=== PATIENT | female | born 1935 | race African-American/Black ===

== ENCOUNTER 2016-12-07 09:13 | Outpatient (CLI) | payer MEDICARE ==
--- NOTE | 2016-12-07 11:25 | CT ---
CT ABDOMEN AND PELVIS WITH AND WITHOUT IV CONTRAST: Indication: Complex renal cyst. Comparison: CT abdomen, 01-07-16 and 09-21-15. FINDINGS: The complex cystic mass involving the lateral aspect of the left kidney measures 3.4 x 2.7 cm where it previously measured, in September 2015, 3.5 x 3.2 cm. The internal enhancing nodular component measure s 1.3 x 1.4 cm where on today's examination it measures approximately 1.2 x 1.5 cm. Overall, the les ion is stable. Bilateral renal cysts are stable. Cholelithiasis is similar. Right hepatic lobes stab le. No definite abnormal urothelial lesion seen involving the proximal renal collecting systems. No enlarged lymph nodes are evident. There are scattered degenerative and osteoarthritic change. IMPRESSION: 1. Stable complex cystic mass of the left kidney. 2. Stable bilateral renal cysts and hepatic cysts. 3. Stable cholelithiasis. POS: [facility]
[2016-12-07] MEDS ORDERED: Iopamidol 370 76% 100 ML VIAL ONE (16:26)
== END 2016-12-07 09:14 | disposition home or self-care (01) ==
LOC: CT 09:13
PROVIDERS: ATTEND Urology
DX: N28.1 Cyst of kidney, acquired (principal); K76.89 Other specified diseases of liver; K80.20 Calculus of gallbladder without cholecystitis without obstruction
CPT/HCPCS: 74170

== ENCOUNTER 2017-01-24 04:58 | Inpatient (IN) | payer MEDICARE ==
[2017-01-24] MEDS ORDERED: Ondansetron HCl/PF 4 MG/2 ML Vial ONE ×2 (05:21→10:06)
[2017-01-24 05:49] LABS: Prothrombin Time 13.9 SEC (12.0-14.7)
[2017-01-24 05:50] LABS: Lactic Acid - Sepsis 1.9 mmol/L (0.5-2.2)
[2017-01-24 05:52] LABS: #Lymphocytes 1.3 thou/uL (1.20-3.40); #Monocytes 0.9 thou/uL (0.11-0.59); #Neutrophils 6.9 thou/uL (1.40-6.50); %Basophils 0.2 % (0.0-1.0); %Eosinophils 0.2 % (0.0-10.0); %Lymphocytes 14.3 % (21.0-51.0); %Monocytes 9.7 % (0.0-10.0); Hematocrit 46.1 % (36.0-47.0); Red Blood Cell (RBC) Count 5.31 mill/uL (4.20-5.40); White Blood Cell (WBC) Count 9.1 thou/uL (4.8-10.8)
[2017-01-24 05:58] LABS: ALT (SGPT) 20 U/L (8-55); AST (SGOT) 20 U/L (5-34); Alkaline Phosphatase 57 U/L (40-150); Anion Gap 18 mmol/L (10-20); BUN (Urea Nitrogen) 12 mg/dL (9.8-20.1); Bilirubin, Total 0.4 mg/dL (0.2-1.2); CK (CPK) 98 U/L (29-168); Calc. Creatinine Clearance 0 mL/min (70-130); Calcium 10.8 mg/dL (7.8-10.44); Carbon Dioxide 22 mmol/L (23-31); Chloride 100 mmol/L (98-107); Estimated GFR-MDRD 63; Globulin 3.6 g/dL (2.4-3.5); Lipase 18 U/L (8-78); Protein, Total 7.6 g/dL (6.0-8.3)
[2017-01-24 06:00] LABS: Troponin I 0.015 ng/mL (< 0.028)
[2017-01-24 06:03] LABS: Bilirubin Moderate (Negative); Blood, Urine Negative (Negative); Glucose, Urine (Dipstick) Negative (Negative); Ketone, Urine 15 mg/dL (Negative); Nitrite Positive (Negative); Protein, Urine (Dipstick) 30 mg/dL (Neg-Trace); Urobilinogen 0.2 mg/dL (0.2-1.0)
--- NOTE | 2017-01-24 08:04 | RAD ---
AP CHEST: History: Nausea, vomiting. Date: 01-24-17 Comparison: 05-02-16 FINDINGS: AP chest demonstrates the lungs to be well aerated. No evidence of active intrathoracic disease seen. No evidence of effusions, pneumonia or pneumothorax seen. IMPRESSION: Unremarkable AP chest. POS: [facility]
--- NOTE | 2017-01-24 08:12 | RAD ---
AP ABDOMEN: History: Vomiting, not feeling well. FINDINGS: Lower lumbar degenerative changes seen. Abdominal gas pattern is nonspecific. No evidence of obstruction or ileus seen. No dilated loops of b owel seen. IMPRESSION: Lower lumbar degenerative changes, otherwise unremarkable AP abdomen. POS: [facility]
[2017-01-24] MEDS ORDERED: Acetaminophen 650 MG Suppository PR PRN (08:52)
[2017-01-24] MEDS ORDERED: Acetaminophen 325 MG TAB PO PRN (08:52)
--- NOTE | 2017-01-24 09:17 | CT ---
ABDOMEN AND PELVIC CT SCAN WITH IV CONTRAST: History: 81-year-old female with abdominal pain with nausea, vomiting, and diarrhea. Comparison: 01-15-17, 04-01-12 FINDINGS: The lung bases are clear. The gallbladder is upper range of normal size with at least one gallstone w ithout overt gallbladder wall thickening or some pericholecystic fluid or fat stranding. The region o f the pancreas appears within normal limits. The spleen is unremarkable. Adrenal glands are unremarka ble. There is a stable right renal cyst. There is also stable appearing complex solid and cystic mass involving the right kidney with a cystic component that measures approximately 2.7 x 2.9 cm in size with a central enhancing mural nodule of approximately 1.3 cm in size, stable from the 01-15-17 exam. This complex cyst with mural nodule is little changed from 04-01-12 study, but a cystic neoplastic ma ss is considered very likely. There are some abnormally dilated loops of small bowel in the upper mid and lower abdomen with one somewhat more focal area of dilatation of what appears to be small bowel in the upper pelvis which appears to be post-operative, possibly some type of anastomosis which appea rs to be focally dilated. There is some residual oral contrast media in the small bowel and colon. No evidence for overt abscess. There is a Love catheter in place within decompressed bladder. 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 IMPRESSION: Abnormally dilated small bowel loops with air and fluid levels throughout including a somewhat more f ocally dilated loop of what appears to be small bowel in the upper pelvis which appears to be some ty pe of post-operative anastomotic site. The amount of small bowel dilatation has progressed and worsen ed from 01-15-17 study. Cholelithiasis without evidence for acute cholecystitis. Bilateral renal cyst s with a complex solid and cystic mass involving the left kidney which is little changed from prior s tudies. No evidence of abscess. POS: [facility]
[2017-01-24] MEDS ORDERED: Lidocaine Viscous Sol 2% 15 ml UD Cup ONE (09:33)
[2017-01-24] MEDS ORDERED: Benzocaine 20% Spray 60 ML CAN ONE (09:33)
[2017-01-24] MEDS ORDERED: Oxymetazoline HCl 0.05% ( 15 ML ) ONE (10:06)
[2017-01-24] MEDS ORDERED: Morphine 4 MG/ML VIAL ONE (10:06)
[2017-01-24] MEDS ORDERED: Dextrose 50% Abboject 50 ML SYRINGE SLOW IVP PRN (10:29)
[2017-01-24] MEDS ORDERED: Dextrose 5% in Water 1,000 ML IV PRN (10:29)
--- NOTE | 2017-01-24 10:56 | HP ---
PRIMARY CARE PROVIDER: ELLIE Cruz CHIEF COMPLAINT: Abdominal pain. HISTORY OF PRESENT ILLNESS: Ms. Coombs is a pleasant 81-year-old lady who was seen at [facility] on 01/25/2016. On 01/14/2017, she developed abdominal pain, nausea, vomiting, an d diarrhea. She reports vomiting multiple times a day. She describes that the pain was over the rig ht side of her abdomen, sharp, 10/10 at its worst, accompanied by nausea, vomiting, and diarrhea. No known aggravating or relieving factors. She went to the emergency room at [place] on 01/15/2017. She was diagnosed with acute infectious gastroenteritis versus partial small-bowel obstruction. She reports that she lives with her sons who were also sick with similar symptoms. She was discharged ho in from the emergency room. She continued to have diminished oral intake, diarrhea, and vomiting. S he also reports that her urine output has diminished. She therefore came to the emergency room. REVIEW OF SYSTEMS: The following complete review of systems was negative, unless otherwise mentioned in the HPI or below: Constitutional: Weight loss or gain, sense of well-being, ability to conduct usual activities, exerc ise tolerance. Skin/Breast: Rash, itching, changes in hair growth or loss, nail changes, breast lumps, tenderness, swelling, nipple discharge. Eyes: Vision, double vision, tearing, blind spots, pain. ENT/Mouth: Headaches (location, time of onset, duration, precipitating factors), vertigo, lightheade dness, injury. Vision, double vision, tearing, blind spots, pain, nose bleeding, colds, obstruction, discharge, dental difficulties, gingival bleeding, dentures, neck stiffness, pain, tenderness, masses in thyroid or other areas Cardiovascular: Precordial pain, substernal distress, palpitations, syncope, dyspnea on exertion, or thopnea, nocturnal paroxysmal dyspnea, edema, cyanosis, hypertension, heart murmurs, varicosities, ph lebitis, claudication. Respiratory: Pain, shortness of breath, wheezing, stridor, cough, hemoptysis, fever or night sweats Gastrointestinal: Poor appetite, dysphagia, indigestion, abdominal pain, heartburn, eructation, naus ea, vomiting, hematemesis, jaundice, constipation, or diarrhea, abnormal stools (steffany-colored, tarry, bloody, greasy, foul smelling), flatulence, hemorrhoids, recent changes in bowel habits. Genitourinary: Urgency, frequency, dysuria, nocturia, hematuria, polyuria, oliguria, unusual (or gene nge in) color of urine, stones, hesitancy, change in size of stream, dribbling, acute retention or in continence, libido, potency. Musculoskeletal: Pain, swelling, redness or heat of muscles or joints, limitation, of motion, muscul ar weakness, atrophy, cramps. Neurologic/Psychiatric: Convulsions, paralyses, tremor, incoordination, paraesthesias, difficulties with memory of speech, sensory or motor disturbances, or muscular coordination (ataxia, tremor), emot ional problems, anxiety, depression, previous psychiatric care, unusual perceptions, hallucinations. Allergy/Immunologic: Skin rash, anemia, bleeding tendency, polydipsia, polyuria, intolerance to heat or cold. PAST MEDICAL HISTORY: Significant for diabetes mellitus type 2, glaucoma, gastroesophageal reflux di sease, hypertension, colon cancer, obesity, right renal cyst, left cataract surgery, left corneal tra nsplant, and right eye blindness. PAST SURGICAL HISTORY: Significant for partial colectomy in 1995 for colon cancer, cataract surgery, and corneal surgery. PSYCHIATRIC HISTORY: Significant for anxiety. SOCIAL HISTORY: The patient denies tobacco use, alcohol use or recreational drug use. She lives wit h her 2 sons. FAMILY HISTORY: No family history of premature coronary artery disease. CODE STATUS: I discussed her code status. She is FULL CODE. ALLERGIES: No known drug allergies. CURRENT MEDICATIONS: Include metoprolol 50 mg 2 times a day, Farxiga 5 mg 2 times a day, alprazolam 0.5 mg as needed. PHYSICAL EXAMINATION: GENERAL: On examination, Ms. Coombs is awake and alert, not in acute distress. VITAL SIGNS: Blood pressure is 132/86, pulse is 93. She is breathing at rate of 16 and saturating 9 6% on room air. She is afebrile. EYES: She is blind in the right eye. She also has partial opacification of the left cornea. No scl eral icterus, no conjunctival pallor. ENT: Dry mucosal membranes, no oropharyngeal erythema or exudates. NECK: Supple, nontender, normal range of movement, trachea is midline. RESPIRATORY: Accessory muscles of breathing are not active. Chest wall movements are symmetrical bi laterally. LUNGS: Clear to auscultation without wheeze, rhonchi or crepitations. CARDIOVASCULAR: S1 and S2 are heard, regular. LUNGS: Peripheral pulses palpable. No carotid bruit, no pericardial rub. ABDOMEN: Mild tenderness over the right lower quadrant, no guarding or rigidity, bowel sounds are he aniket, no hepatomegaly, no splenomegaly. NEUROLOGIC: Cranial nerves II-XII are intact. Deep tendon reflexes are 2+. MUSCULOSKELETAL: Power is 5/5 in all 4 extremities. Normal range of movement at all major extremity joints. LYMPHATIC: No cervical lymphadenopathy. PSYCHIATRIC: Normal mood, normal affect, patient is oriented to person, place, and time. IMAGING AND LABORATORY DATA: Ms. Coombs's labs and investigations were reviewed. I have reviewed he r electrocardiogram, which shows normal sinus rhythm, no ST changes to suggest an acute coronary synd natalia. I also reviewed her chest x-ray, which does not show any pulmonary infiltrates. Abdominal x-r ays showed lower lumbar degenerative changes. CT scan of the abdomen and pelvis showed abnormally di lated small bowel loops with air fluid levels throughout. Laboratory investigation show unremarkable CBC, INR 1.1, mildly elevated calcium of 10.8, otherwise unremarkable. Comprehensive metabolic prof ile, normal troponin I, normal BNP, normal lactic acid and urinalysis positive for protein, ketones, nitrites, and bilirubin. ASSESSMENT AND PLAN: Ms. Coombs is a pleasant 81-year-old lady who was seen at [facility]. Her problem list includes: 1. Abdominal pain: Most likely secondary to bowel obstruction, although could be secondary to urina ry tract infection as well. She will be admitted to the hospital for further management. 2. Urinary tract infection. She will be started on empiric IV ceftriaxone while awaiting urine cult ures. 3. Bowel obstruction: Surgical service has been consulted by emergency room physician for managemen t. Has also placed a nasogastric tube. 4. Diabetes mellitus: Start Accu-Cheks and insulin sliding scale. 5. Hypercalcemia: Mild, etiology unclear, we will recheck. 6. Hypertension: Monitor vital signs, titrate antihypertensives as needed. 7. Glaucoma: The patient was reportedly started on eyedrops recently. Resume the medication once c larified. Many thanks for allowing me to participate in your patient's care. Please feel free to contact me wi th any questions or concerns. LEVEL OF RISK: High. LEVEL OF COMPLEXITY: High.
[2017-01-24 12:54] VITALS: BMI 40.9
[2017-01-24] MEDS ORDERED: Iopamidol 370 76% 50 ML VIAL FS ONE (13:54)
[2017-01-24] MEDS ORDERED: ISOVUE-370 76%-LOCM 1 ML ONE (13:54)
[2017-01-24] MEDS: Sodium Chloride 0.9% 1,000 ML IV SCH (14:04)
[2017-01-24] MEDS: Enoxaparin Sodium 40 MG/0.4 ML SYRINGE SC SCH (15:32)
[2017-01-24] MEDS: Ondansetron HCl/PF 4 MG/2 ML Vial IVP PRN (17:47)
[2017-01-24] MEDS ORDERED: Cepastat Lozenges 1 LOZ PO PRN (18:30)
--- NOTE | 2017-01-24 19:32 | CON ---
DATE OF CONSULTATION: 01/24/2017 This is a consult note from Dr. Garrett, [facility]. REASON FOR CONSULTATION: Small-bowel obstruction. HISTORY OF PRESENT ILLNESS: This is an 81-year-old female who presents with nausea and vomiting, rec ently seen in the Emergency Department in [place] last week with similar symptoms that improved. Ean parker was thought at that time to have a gastroenteritis. Seen in the Emergency Department here now, whe re a repeat CT scan shows evidence of small-bowel obstruction, there is dilation of the small intesti ne. No definite transition point, although she has an anastomosis down in the pelvis with some proxi mal dilation. Patient has a history of colon resection and anastomosis for colon cancer that was 20 years ago. No history of recurrent cancer, never had a small-bowel obstruction before. She has also been found to have a urinary tract infection. PAST MEDICAL HISTORY: Includes diabetes mellitus type 2, morbid obesity, glaucoma, gastroesophageal reflux disease and hypertension. PAST SURGICAL HISTORY: Partial colectomy in 1995 and cataract surgery. SOCIAL HISTORY: No smoking, alcohol or other drugs. Lives at home with her 2 sons. MEDICINES: Include metoprolol, Farxiga and alprazolam. ALLERGIES: No known drug allergies. REVIEW OF SYSTEMS: Ten-system review of systems otherwise negative unless described above. PHYSICAL EXAMINATION: VITAL SIGNS: Blood pressure is 120/67, pulse 88, respirations 20. She is afebrile. NG tube placed by me at the bedside with 400 out immediately of bilious material. HEENT: Sclerae are anicteric. Oropharynx is clear. NECK: No lymphadenopathy. CHEST: Coarse breath sounds bilateral. HEART: Regular rate. ABDOMEN: Distended and diffuse mildly tender without guarding or rebound. No obvious incisional her christal. LABORATORY AND X-RAY FINDINGS: White blood cell count is 9 and hemoglobin 14. No bands on her diffe rential. Sodium 136, potassium 3.5, creatinine 1 and glucose 203. UA shows positive for nitrites, h igh on ketones and protein. Leukocyte esterase negative. CT scan of her abdomen and pelvis shows ab normally dilated small intestinal loops down to what appears to be a postop anastomotic site. ASSESSMENT: Small-bowel obstruction, likely secondary to previous abdominal surgery. PLAN: I placed an NG tube. She is not tachycardic, has a normal infectious count. We will try NG t ube decompression overnight. I suspect she will improve without surgery; however, if not improved cl inically in 24-48 hours, next step would be either a laparotomy and lysis of adhesions or Gastrografi n small bowel follow-through. We will follow with you.
[2017-01-25] MEDS: Sodium Chloride 0.9% 1,000 ML IV SCH (01:08)
[2017-01-25 04:01] LABS: #Lymphocytes 1.6 thou/uL (1.20-3.40); #Monocytes 0.8 thou/uL (0.11-0.59); #Neutrophils 3.2 thou/uL (1.40-6.50); %Basophils 0.3 % (0.0-1.0); %Eosinophils 0.7 % (0.0-10.0); %Lymphocytes 28.5 % (21.0-51.0); %Monocytes 14.1 % (0.0-10.0); Hematocrit 41.4 % (36.0-47.0); Mean Platelet Volume 7.1 fL (7.4-10.4); Red Blood Cell (RBC) Count 4.74 mill/uL (4.20-5.40); White Blood Cell (WBC) Count 5.7 thou/uL (4.8-10.8)
[2017-01-25 04:18] LABS: Anion Gap 17 mmol/L (10-20); BUN (Urea Nitrogen) 10 mg/dL (9.8-20.1); Calc. Creatinine Clearance 99 mL/min (70-130); Calcium 9.3 mg/dL (7.8-10.44); Carbon Dioxide 22 mmol/L (23-31); Chloride 105 mmol/L (98-107); Estimated GFR-MDRD 85
[2017-01-25] MEDS: cefTRIAXone\\ROCEPHIN 1 GM, Syringe 0.4 ML in Sterile Water 9.6 ML SLOW IVP SCH (05:54)
[2017-01-25] MEDS ORDERED: cefTRIAXone\\ROCEPHIN 1 GM in Sodium Chloride 0.9% 100 ML IVPB SCH (06:00)
[2017-01-25] MEDS ORDERED: Potassium Chloride 40 MEQ in Premix Bag 1 BAG IVPB SCH (08:30)
[2017-01-25] MEDS ORDERED: NS 0.9% w/ 20 MEQ KCL 1,000 ML/1,000 ML BAG IV SCH (08:30)
[2017-01-25] MEDS ORDERED: Potassium Chloride 40 MEQ in Sodium Chloride 0.9% 250 ML 250 ML IVPB SCH ×4 (09:00)
[2017-01-25] MEDS: Enoxaparin Sodium 40 MG/0.4 ML SYRINGE SC SCH (09:40)
--- NOTE | 2017-01-25 11:49 | PRG ---
DATE OF SERVICE: 01/25/2017 SUBJECTIVE: Ms. Coombs had a bowel movement. She is feeling better. Denies nausea. She is hungry. NG output is 200 overnight, it is turning more clear. PHYSICAL EXAMINATION: GENERAL: She is afebrile. Vital signs are stable. ABDOMEN: Soft, minimally distended, minimally diffusely tender. Well-healed incision. LABORATORY DATA: White blood cell count is normal. ASSESSMENT: Resolving likely partial small-bowel obstruction. PLAN: I recommend Gastrografin small bowel follow through only because this is her second bout of th is in the last month, whereas before she was seen at the [facility]. So a small bowel follow through today did confirm that there is no obstruction. When that is normal, later on, I will remove her NG tube and start her on a full liquid diet. Likely could be discharged home tomorrow, then Dr. Babb will be covering for me tomorrow in my absence.
--- NOTE | 2017-01-25 13:23 | PDOC.PN ---
- Subjective Encounter Start Date: 01/25/17 Encounter Start Time: 07:00 Pt seen for followup re: hypokalemia. Denies chest pain, shortness of breath, fevers or chills. Had bowel movement last night. - Objective MAR Reviewed: Yes Vital Signs & Weight: Vital Signs (12 hours) Temp Pulse Resp BP Pulse Ox 01/25/17 08:00 98.2 F 89 20 99 01/25/17 07:27 98.2 F 89 20 125/67 99 01/25/17 04:00 98.3 F 80 16 131/63 99 Weight Weight 253 lb 14.4 oz I&O: 01/24/17 01/25/17 01/26/17 06:59 06:59 06:59 Intake Total 1550 Output Total 1400 Balance 150 Result Diagrams: 01/25/17 03:50 01/25/17 03:50 Additional Labs: Accuchecks 01/25/17 01/25/17 01/25/17 12:36 05:25 00:04 POC Glucose 110 120 H 148 H 01/24/17 18:00 POC Glucose 128 H Phys Exam - Physical Examination morbid obesity HEENT: moist MMs, sclera anicteric, oral pharynx no lesions R eye blind, L corneal opacity Neck: no nodes, no JVD, supple, full ROM Respiratory: no wheezing, no rales, no rhonchi, clear to auscultation bilateral Cardiovascular: RRR, no rub Gastrointestinal: soft, non-tender, no distention, positive bowel sounds Musculoskeletal: pulses present Neurological: moves all 4 limbs Lymphatic: no nodes Psychiatric: normal affect, A&O x 3 Skin: no rash, normal turgor, cap refill <2 seconds Dx/Plan (1) Hypokalemia Code(s): E87.6 - HYPOKALEMIA Status: Acute (2) Bowel obstruction Code(s): K56.609 - UNSP INTESTNL OBST, UNSP TO PARTIAL VERSUS COMPLETE OBST Status: Acute (3) UTI (urinary tract infection) Status: Acute (4) DM2 (diabetes mellitus, type 2) Status: Chronic (5) HTN (hypertension) Code(s): I10 - ESSENTIAL (PRIMARY) HYPERTENSION Status: Chronic (6) Glaucoma Code(s): H40.9 - UNSPECIFIED GLAUCOMA Status: Chronic (7) Morbid obesity Code(s): E66.01 - MORBID (SEVERE) OBESITY DUE TO EXCESS CALORIES Status: Chronic (8) Hypercalcemia Code(s): E83.52 - HYPERCALCEMIA Status: Resolved - Plan PT/OT, out of bed/ambulate, DVT proph w/lovenox * .Replace potassium. Surgical service following re: bowel obstruction, will await instructions. Continue IV antibiotics, follow urine cultures. Monitor vital signs, titrate antihypertensives as needed. Conitnue accuchecks, insulin sliding scale. Review of Systems - Review of Systems Constitutional: negative: Fever, Chills, Sweats, Weakness, Malaise Respiratory: negative: Cough, Dry, Shortness of Breath, Hemoptysis, SOB with Excertion, Pleuritic Pain, Sputum, Wheezing Cardiovascular: negative: Chest Pain, Palpitations, Orthopnea, Paroxysmal Noc. Dyspnea, Edema, Light Headedness Gastrointestinal: negative: Nausea, Vomiting, Abdominal Pain, Diarrhea, Constipation, Melena, Hematochezia Genitourinary: negative: Dysuria, Frequency, Incontinence, Hematuria, Retention - Medications/Allergies Allergies/Adverse Reactions: Allergies Allergy/AdvReac Type Severity Reaction Status Date / Time No Known Drug Allergies Allergy Verified 01/24/17 08:50 Medications: Current Medications Acetaminophen (Tylenol) 650 mg PO Q4H PRN PRN Reason: Headache/Fever or Pain Acetaminophen (Tylenol) 650 mg OK Q4H PRN PRN Reason: Headache/Fever or Pain Dextrose/Water (Dextrose 50%) 25 gm SLOW IVP PRN PRN PRN Reason: Hypoglycemia Enoxaparin Sodium (Lovenox) 40 mg SC 0900 [facility] Last Admin: 01/25/17 09:40 Dose: 40 mg Glucagon (Glucagon) 1 mg IM PRN PRN PRN Reason: Hypoglycemia Dextrose/Water (D5w) 1,000 mls @ 0 mls/hr IV .Q0M PRN; As Directed PRN Reason: Hypoglycemia Ceftriaxone Sodium 1 gm/ (Syringe 0.4 ml/ Sterile Water) 10 mls @ 120 mls/hr SLOW IVP 0600 [facility] Last Admin: 01/25/17 05:54 Dose: 10 mls Potassium Chloride/Sodium Chloride (Ns 0.9% W/ 20 Meq Kcl) 1,000 ml in 1,000 mls @ 100 mls/hr IV .Q10H [facility] Last Admin: 01/25/17 09:41 Dose: 1,000 mls Insulin Human Lispro (Humalog) 0 units SC .MILD SLIDING SCALE PRN PRN Reason: Mild Correctional Scale Morphine Sulfate (Morphine) 2 mg SLOW IVP Q6H PRN PRN Reason: Pain Ondansetron HCl (Zofran) 4 mg IVP Q6H PRN PRN Reason: Nausea/Vomiting Last Admin: 01/24/17 17:47 Dose: 4 mg Throat Lozenges (Cepastat Lozenges) 1 ashleigh PO PRN PRN PRN Reason: .BEDSIDE
[2017-01-25] MEDS: Latanoprost 0.005% Ophth Soln 2.5 ml Bottle EA EYE SCH ×2 (15:33→21:10)
[2017-01-25] MEDS: Ondansetron ODT 4 MG TAB SL SCH ×2 (15:34→22:56)
[2017-01-25] MEDS ORDERED: Lorazepam 2 MG/ML VIAL SLOW IVP SCH (17:15)
[2017-01-25] MEDS: Potassium Chloride 20 MEQ in Lactated Ringer's 1,000 ML IV SCH (19:18)
--- NOTE | 2017-01-25 20:18 | RAD ---
SMALL BOWEL EXAM: 01/25/17 Patient was given Gastrografin via an NG tube. Sequential images were obtained of the abdomen. HISTORY: Small bowel obstruction. FINDINGS: [employer] film shows mild gaseous dilatation of small and large bowel. On initial imaging, the contrast opacifies the stomach and duodenum. The duodenum and proximal jejunu m appear unremarkable. On delayed films, the mid and distal small bowel showed dilatation. There is delayed small bowel multani sit. Contrast does not reach the colon at 3.5 hours. A delayed 8 hour exam was performed and contrast is seen throughout the colon and to the level of the rectum. IMPRESSION: Mild dilatation of mid and distal small bowel. Delayed small bowel transit indicating a low grade or partial small bowel obstruction. POS: [facility]
[2017-01-25] MEDS ORDERED: Sodium Chloride 0.9% 500 ML IVPB SCH (20:30)
[2017-01-25] MEDS: Metoprolol Tartrate 50 MG TAB PO SCH (21:51)
[2017-01-25] MEDS: prednisoLONE 1% Ophth Susp 5 ml Bottle L EYE SCH (21:52)
[2017-01-25] MEDS: Ondansetron HCl/PF 4 MG/2 ML Vial IVP PRN (22:23)
[2017-01-26] MEDS: Morphine 4 MG/ML VIAL SLOW IVP PRN ×2 (02:27→08:37)
[2017-01-26 03:53] LABS: Anion Gap 17 mmol/L (10-20); BUN (Urea Nitrogen) 8 mg/dL (9.8-20.1); Calc. Creatinine Clearance 97 mL/min (70-130); Calcium 9.3 mg/dL (7.8-10.44); Carbon Dioxide 20 mmol/L (23-31); Chloride 115 mmol/L (98-107); Estimated GFR-MDRD 83
[2017-01-26] MEDS: Potassium Chloride 20 MEQ in Lactated Ringer's 1,000 ML IV SCH ×2 (05:13→18:00)
[2017-01-26] MEDS: cefTRIAXone\\ROCEPHIN 1 GM, Syringe 0.4 ML in Sterile Water 9.6 ML SLOW IVP SCH (05:13)
[2017-01-26] MEDS: Ondansetron ODT 4 MG TAB SL SCH ×3 (05:24→22:59)
--- NOTE | 2017-01-26 08:02 | PRG ---
DATE OF SERVICE: 01/26/2017 SUBJECTIVE: Concepción Coombs is seen today for Dr. Montes, Thanksgiving holiday coverage. The pat linda had a small bowel follow-through yesterday, within three and a half hours contrast did make into the colon and in about eight-hour film most of the contrast was in the colon and rectum. Patient del rio d numerous bowel movements yesterday. The NG tube was removed, and her morning abdominal x-rays are pending. Patient states she has had some nausea since the nasogastric tube was removed yesterday. S he states her abdomen is still slightly distended. She has had a partial colectomy by Dr. Montes [place] years [place]. OBJECTIVE: LUNGS: Clear to auscultation. CARDIAC: Regular rate and rhythm without murmur or gallop. ABDOMEN: Soft, mildly distended, mildly firm midline scar per past surgical history. LABORATORY DATA: No laboratories today. ASSESSMENT AND PLAN: 1. Partial bowel obstruction. X-rays yesterday revealed some proximal mid small bowel dilatation pe rsistent, but contrast did make into the colon. She is considered to have a partial bowel obstructio n. We would order full liquids today and see how she tolerates this. Hopefully, operative intervent ion will not be necessary. 2. Mobility poor. The patient is not independently ambulatory. She can mobilize with a walker with assistance. She would need to be up in a chair 3-4 times a day, at least up in a chair for all meal s out of bed and also in the evening.
--- NOTE | 2017-01-26 08:21 | RAD ---
SUPINE AND LEFT LATERAL DECUBITUS VIEWS OF ABDOMEN: Date: 01/26/17 HISTORY: Follow-up small bowel obstruction. COMPARISON: Small bowel study on 01/25/17. FINDINGS: Again noted are persistent dilated loops of small bowel with contrast seen throughout loops of small bowel. There is contrast seen in the colon. However, there is suggestion of differential air fluid le vels on the left lateral decubitus view, which suggests a partial small bowel obstruction. No free in traperitoneal gas is identified on this exam. IMPRESSION: Contrast is seen within the colon, but there are persistently dilated loops of small bowel, and findi ngs are again worrisome for partial small bowel obstruction. POS: [facility]
[2017-01-26] MEDS: ALPRAZolam 0.5 MG TAB PO PRN (08:25)
[2017-01-26] MEDS: Metoprolol Tartrate 50 MG TAB PO SCH ×2 (08:25→21:00)
[2017-01-26] MEDS: Enoxaparin Sodium 40 MG/0.4 ML SYRINGE SC SCH (08:26)
[2017-01-26] MEDS: Latanoprost 0.005% Ophth Soln 2.5 ml Bottle EA EYE SCH ×3 (08:28→21:25)
[2017-01-26] MEDS: prednisoLONE 1% Ophth Susp 5 ml Bottle L EYE SCH ×2 (08:30→21:00)
--- NOTE | 2017-01-26 08:51 | PDOC.PN ---
- Subjective Encounter Start Date: 01/26/17 Encounter Start Time: 08:50 Subjective: still with abdominal pain .vomited earlier this am -: no BM today.No gas.feels nauseous. -: could not tolerate CLD - Objective MAR Reviewed: Yes Vital Signs & Weight: Vital Signs (12 hours) Temp Pulse Resp BP BP Pulse Ox 01/26/17 07:00 97.9 F 88 20 128/66 97 01/26/17 03:33 98.8 F 94 20 127/72 97 01/25/17 23:27 99.4 F 112 H 16 129/77 95 Weight Admit Weight 253 lb 14.4 oz Weight 253 lb 14.4 oz I&O: 01/25/17 01/26/17 01/27/17 06:59 06:59 06:59 Intake Total 1550 960 581 Output Total 1400 750 Balance 150 210 581 Result Diagrams: 01/25/17 03:50 01/26/17 03:33 Additional Labs: Accuchecks 01/26/17 01/25/17 01/25/17 05:31 23:34 17:51 POC Glucose 154 H 155 H 141 H 01/25/17 12:36 POC Glucose 110 Microbiology 01/24/17 05:49 Urine gilliland catheter Urine Culture - Preliminary NO GROWTH AT 24 HOURS Laboratory Tests 01/24/17 01/24/17 01/25/17 05:29 05:29 03:50 Sodium 136 141 CK-MB (CK-2) 2.2 Troponin I 0.015 Lipase 18 01/26/17 03:33 Sodium 148 H CK-MB (CK-2) Troponin I Lipase Radiology Reviewed by me: Yes (KUB 01/26-persistent Partial SBO) Phys Exam - Physical Examination Constitutional: NAD tired looking HEENT: PERRLA, moist MMs, sclera anicteric, oral pharynx no lesions, 2+ tonsils Neck: no nodes, no JVD, supple, full ROM Respiratory: no wheezing, no rales, no rhonchi, clear to auscultation bilateral Cardiovascular: RRR, no significant murmur Gastrointestinal: soft, non-tender, no distention, positive bowel sounds Musculoskeletal: no edema, pulses present Neurological: non-focal, normal sensation, moves all 4 limbs Psychiatric: normal affect, A&O x 3 Dx/Plan (1) Bowel obstruction Code(s): K56.609 - UNSP INTESTNL OBST, UNSP TO PARTIAL VERSUS COMPLETE OBST Status: Acute (2) UTI (urinary tract infection) Status: Acute (3) Hypernatremia Code(s): E87.0 - HYPEROSMOLALITY AND HYPERNATREMIA Status: Acute (4) DM2 (diabetes mellitus, type 2) Status: Chronic (5) Glaucoma Code(s): H40.9 - UNSPECIFIED GLAUCOMA Status: Chronic (6) HTN (hypertension) Code(s): I10 - ESSENTIAL (PRIMARY) HYPERTENSION Status: Chronic (7) Morbid obesity Code(s): E66.01 - MORBID (SEVERE) OBESITY DUE TO EXCESS CALORIES Status: Chronic (8) H/O malignant neoplasm of colon Code(s): Z85.038 - PERSONAL HISTORY OF MALIGNANT NEOPLASM OF LARGE INTESTINE Status: Acute - Plan continue antibiotics, DVT proph w/SCDs NGT taken out last night.Pt still has Partial SBO on KUB. -: May need placement of NGT again.discussed w GS.change to npo. -: May need surgical correction if no improvement. -: monitor.hemodynamically stable.cont rocephin.urine Cx NGTD -: sodium high.monitor. ON LR. * . Review of Systems - Medications/Allergies Allergies/Adverse Reactions: Allergies Allergy/AdvReac Type Severity Reaction Status Date / Time No Known Drug Allergies Allergy Verified 01/24/17 08:50 Medications: Current Medications Acetaminophen (Tylenol) 650 mg PO Q4H PRN PRN Reason: Headache/Fever or Pain Acetaminophen (Tylenol) 650 mg ND Q4H PRN PRN Reason: Headache/Fever or Pain Alprazolam (Xanax) 0.5 mg PO DAILY PRN PRN Reason: Anxiety Last Admin: 01/26/17 08:25 Dose: 0.5 mg Dextrose/Water (Dextrose 50%) 25 gm SLOW IVP PRN PRN PRN Reason: Hypoglycemia Enoxaparin Sodium (Lovenox) 40 mg SC 0900 [facility] Last Admin: 01/26/17 08:26 Dose: 40 mg Glucagon (Glucagon) 1 mg IM PRN PRN PRN Reason: Hypoglycemia Dextrose/Water (D5w) 1,000 mls @ 0 mls/hr IV .Q0M PRN; As Directed PRN Reason: Hypoglycemia Ceftriaxone Sodium 1 gm/ (Syringe 0.4 ml/ Sterile Water) 10 mls @ 120 mls/hr SLOW IVP 0600 [facility] Last Admin: 01/26/17 05:13 Dose: 10 mls Potassium Chloride 20 meq/ (Lactated Ringer's) 1,010 mls @ 100 mls/hr IV .Q10H6M [facility] Last Admin: 01/26/17 05:13 Dose: 1,010 mls Insulin Human Lispro (Humalog) 0 units SC .MILD SLIDING SCALE PRN PRN Reason: Mild Correctional Scale Latanoprost (Xalatan 0.005% Ophth Soln) 1 drop EA EYE TID [facility] Last Admin: 01/26/17 08:28 Dose: 1 drop Metoprolol Tartrate (Lopressor) 50 mg PO BID [facility] Last Admin: 01/26/17 08:25 Dose: 50 mg Morphine Sulfate (Morphine) 2 mg SLOW IVP Q6H PRN PRN Reason: Pain Last Admin: 01/26/17 08:37 Dose: 2 mg Ondansetron HCl (Zofran) 4 mg IVP Q6H PRN PRN Reason: Nausea/Vomiting Last Admin: 01/25/17 22:23 Dose: 4 mg Ondansetron HCl (Zofran Odt) 4 mg SL Q8HR [facility] Last Admin: 01/26/17 05:24 Dose: 4 mg Prednisolone Acetate (Econopred Plus 1% Opth Susp) 1 drop L EYE BID [facility] Last Admin: 01/26/17 08:30 Dose: 1 drop Throat Lozenges (Cepastat Lozenges) 1 ashleigh PO PRN PRN PRN Reason: .BEDSIDE
[2017-01-26] MEDS: Ondansetron HCl/PF 4 MG/2 ML Vial IVP PRN (09:07)
[2017-01-26 18:32] LABS: Bilirubin Moderate (Negative); Blood, Urine Moderate (Negative); Glucose, Urine (Dipstick) Negative (Negative); Ketone, Urine 15 mg/dL (Negative); Nitrite Negative (Negative); Protein, Urine (Dipstick) 30 mg/dL (Neg-Trace); Urobilinogen 0.2 mg/dL (0.2-1.0)
[2017-01-26 18:37] LABS: Squamous Epithelial 0-3 HPF (0-3)
[2017-01-26 18:52] LABS: Bacteria/HPF 2+ HPF (None Seen); Hyaline Casts/LPF NONE SEEN LPF (0-3 Hyaline); Renal Epithelial None Seen HPF (0-3); Transitional Epithelial NONE SEEN HPF (0-3)
[2017-01-26] MEDS: Dextrose 5% w/ 20 mEq KCl 1,000 ML IV SCH (18:54)
[2017-01-27] MEDS: Dextrose 5% w/ 20 mEq KCl 1,000 ML IV SCH (02:53)
[2017-01-27] MEDS: cefTRIAXone\\ROCEPHIN 1 GM, Syringe 0.4 ML in Sterile Water 9.6 ML SLOW IVP SCH (05:11)
[2017-01-27] MEDS: Ondansetron ODT 4 MG TAB SL SCH ×2 (05:12→13:39)
[2017-01-27] MEDS: HumaLOG 300 UNITS/3 ML VIAL SC PRN (05:38)
[2017-01-27 05:42] LABS: Anion Gap 10 mmol/L (10-20); BUN (Urea Nitrogen) 8 mg/dL (9.8-20.1); Calc. Creatinine Clearance 108 mL/min (70-130); Calcium 8.4 mg/dL (7.8-10.44); Carbon Dioxide 23 mmol/L (23-31); Chloride 113 mmol/L (98-107); Estimated GFR-MDRD Greater than 90
[2017-01-27] MEDS ORDERED: Potassium Chloride 40 MEQ in Sodium Chloride 0.9% 500 ML IVPB SCH (06:30)
[2017-01-27] MEDS: D5 1/2 NS w/40 mEq KCL 1,000 ML IV SCH ×2 (07:22→19:38)
--- NOTE | 2017-01-27 07:23 | RAD ---
ABDOMEN 2 VIEWS: Date: 01/27/17 HISTORY: 81-year-old female with follow-up small bowel obstruction. COMPARISON: 01/26/17. FINDINGS: There has been considerable progression of barium through the small bowel and colon with a small amou nt of residual contrast within the rectum and sigmoid portion of the colon, as well as some very mini mal contrast within minimally dilated right-sided small bowel loops. There are some persistent dilate d small bowel loops with air fluid levels. IMPRESSION: Some persistent dilated small bowel loops with air fluid levels. Marked progression of barium through the small bowel and colon when compared to the 01/26/17 study. No new process. POS: [facility]
[2017-01-27] MEDS: Metoprolol Tartrate 50 MG TAB PO SCH ×2 (08:06→21:37)
[2017-01-27] MEDS: prednisoLONE 1% Ophth Susp 5 ml Bottle L EYE SCH ×2 (08:06→21:38)
[2017-01-27] MEDS: Latanoprost 0.005% Ophth Soln 2.5 ml Bottle EA EYE SCH ×3 (08:06→21:37)
[2017-01-27] MEDS: Enoxaparin Sodium 40 MG/0.4 ML SYRINGE SC SCH (08:06)
--- NOTE | 2017-01-27 08:31 | PDOC.PN ---
- Subjective Encounter Start Date: 01/27/17 Encounter Start Time: 08:31 Subjective: feels much better. BM yesterday.no vomiting/nausea/AP - Objective MAR Reviewed: Yes Vital Signs & Weight: Vital Signs (12 hours) Temp Pulse Resp BP BP Pulse Ox 01/27/17 07:35 98.1 F 65 20 120/59 L 98 01/27/17 04:00 98.3 F 64 16 117/59 L 97 01/26/17 23:26 97.6 F 65 16 111/57 L 97 Weight Admit Weight 253 lb 14.4 oz Weight 253 lb 14.4 oz I&O: 01/26/17 01/27/17 01/28/17 06:59 06:59 06:59 Intake Total 960 581 Output Total 750 180 Balance 210 401 Result Diagrams: 01/25/17 03:50 01/27/17 03:51 Additional Labs: Accuchecks 01/27/17 01/26/17 01/26/17 05:35 23:31 18:51 POC Glucose 170 H 193 H 131 H 01/26/17 12:29 POC Glucose 177 H Laboratory Tests 01/24/17 01/25/17 01/26/17 05:29 03:50 03:33 Sodium 136 141 148 H 01/27/17 03:51 Sodium 143 Radiology Reviewed by me: Yes (KUB-improving SBO) Phys Exam - Physical Examination Constitutional: NAD HEENT: PERRLA, moist MMs, sclera anicteric, TM's clear, oral pharynx no lesions , 2+ tonsils Neck: no nodes, no JVD, supple, full ROM Respiratory: no wheezing, no rales, no rhonchi, clear to auscultation bilateral Cardiovascular: RRR, no significant murmur Gastrointestinal: soft, non-tender, no distention, positive bowel sounds Musculoskeletal: no edema, pulses present Neurological: non-focal, normal sensation, moves all 4 limbs Psychiatric: normal affect, A&O x 3 Skin: no rash Dx/Plan (1) Bowel obstruction Code(s): K56.609 - UNSP INTESTNL OBST, UNSP TO PARTIAL VERSUS COMPLETE OBST Status: Acute (2) UTI (urinary tract infection) Status: Acute (3) Hypernatremia Code(s): E87.0 - HYPEROSMOLALITY AND HYPERNATREMIA Status: Acute (4) DM2 (diabetes mellitus, type 2) Status: Chronic (5) Glaucoma Code(s): H40.9 - UNSPECIFIED GLAUCOMA Status: Chronic (6) HTN (hypertension) Code(s): I10 - ESSENTIAL (PRIMARY) HYPERTENSION Status: Chronic (7) Morbid obesity Code(s): E66.01 - MORBID (SEVERE) OBESITY DUE TO EXCESS CALORIES Status: Chronic (8) H/O malignant neoplasm of colon Code(s): Z85.038 - PERSONAL HISTORY OF MALIGNANT NEOPLASM OF LARGE INTESTINE Status: Acute - Plan DVT proph w/SCDs improving SBO. started on CLD.tolerating -: replace potassium and monitor. -: NIESHA following. -: mika advance diet today and DC home tomorrow * . Review of Systems - Review of Systems Constitutional: negative: Fever, Chills, Sweats, Weakness, Malaise, Other Respiratory: negative: Cough, Dry, Shortness of Breath, Hemoptysis, SOB with Excertion, Pleuritic Pain, Sputum, Wheezing Cardiovascular: negative: Chest Pain, Palpitations, Orthopnea, Paroxysmal Noc. Dyspnea, Edema, Light Headedness, Other Gastrointestinal: negative: Nausea, Vomiting, Abdominal Pain, Diarrhea, Constipation, Melena, Hematochezia, Other Genitourinary: negative: Dysuria, Frequency, Incontinence, Hematuria, Retention , Other Musculoskeletal: negative: Neck Pain, Shoulder Pain, Arm Pain, Back Pain, Hand Pain, Leg Pain, Foot Pain, Other Neurological: negative: Weakness, Numbness, Incoordination, Change in Speech, Confusion, Seizures, Other - Medications/Allergies Allergies/Adverse Reactions: Allergies Allergy/AdvReac Type Severity Reaction Status Date / Time No Known Drug Allergies Allergy Verified 01/24/17 08:50 Medications: Current Medications Acetaminophen (Tylenol) 650 mg PO Q4H PRN PRN Reason: Headache/Fever or Pain Acetaminophen (Tylenol) 650 mg ID Q4H PRN PRN Reason: Headache/Fever or Pain Alprazolam (Xanax) 0.5 mg PO DAILY PRN PRN Reason: Anxiety Last Admin: 01/26/17 08:25 Dose: 0.5 mg Dextrose/Water (Dextrose 50%) 25 gm SLOW IVP PRN PRN PRN Reason: Hypoglycemia Enoxaparin Sodium (Lovenox) 40 mg SC 0900 [facility] Last Admin: 01/27/17 08:06 Dose: 40 mg Glucagon (Glucagon) 1 mg IM PRN PRN PRN Reason: Hypoglycemia Dextrose/Water (D5w) 1,000 mls @ 0 mls/hr IV .Q0M PRN; As Directed PRN Reason: Hypoglycemia Ceftriaxone Sodium 1 gm/ (Syringe 0.4 ml/ Sterile Water) 10 mls @ 120 mls/hr SLOW IVP 0600 [facility] Last Admin: 01/27/17 05:11 Dose: 10 mls Potassium Chloride/Dextrose/Sod Cl (D5 1/2 Ns W/40 Meq Kcl) 1,000 mls @ 125 mls /hr IV .Q8H [facility] Last Admin: 01/27/17 07:22 Dose: 1,000 mls Potassium Chloride 40 meq/ (Sodium Chloride) 520 mls @ 130 mls/hr IVPB NOW [facility] Stop: 01/27/17 12:00 Last Admin: 01/27/17 07:22 Dose: 520 mls Insulin Human Lispro (Humalog) 0 units SC .MILD SLIDING SCALE PRN PRN Reason: Mild Correctional Scale Last Admin: 01/27/17 05:38 Dose: 2 unit Latanoprost (Xalatan 0.005% Ophth Soln) 1 drop EA EYE TID [facility] Last Admin: 01/27/17 08:06 Dose: 1 drop Metoprolol Tartrate (Lopressor) 50 mg PO BID [facility] Last Admin: 01/27/17 08:06 Dose: 50 mg Morphine Sulfate (Morphine) 2 mg SLOW IVP Q6H PRN PRN Reason: Pain Last Admin: 01/26/17 08:37 Dose: 2 mg Ondansetron HCl (Zofran) 4 mg IVP Q6H PRN PRN Reason: Nausea/Vomiting Last Admin: 01/26/17 09:07 Dose: 4 mg Ondansetron HCl (Zofran Odt) 4 mg SL Q8HR [facility] Last Admin: 01/27/17 05:12 Dose: Not Given Prednisolone Acetate (Econopred Plus 1% Opth Susp) 1 drop L EYE BID [facility] Last Admin: 01/27/17 08:06 Dose: 1 drop Throat Lozenges (Cepastat Lozenges) 1 ashleigh PO PRN PRN PRN Reason: .BEDSIDE
--- NOTE | 2017-01-27 09:15 | PRG ---
DATE OF SERVICE: 01/27/2017 SUBJECTIVE: Ms. Coombs feels better this morning. She has not had any nausea or vomiting. She repo rts stool and flatus yesterday, but none today. She reports that her abdomen does not feel distended and she is not nauseated and she would like to try clear liquids today. Abdominal x-rays are pendin g this morning. Yesterday, she felt nauseated and abdomen was slightly distended, but that has resol raven. She spent most of the evening yesterday out of bed. OBJECTIVE: VITAL SIGNS: Temperature 98.3 degrees, pulse 64, blood pressure 117/59. LUNGS: Clear to auscultation. CARDIAC: Regular rate and rhythm without murmur or gallop. ABDOMEN: Soft, mild, normal character bowel sounds, non-tympanitic, nondistended, midline scar per p ast colon resection history. LABORATORY DATA: On 01/27/2017, sodium 143, potassium 3.3, chloride 113. BUN 8, creatinine 0.72. A ccu-Cheks 130 to 190. She is on D5 half normal saline with 20 of K. White count 5.7, hemoglobin 12. 9. ASSESSMENT AND PLAN: 1. Potassium IV bolus, change IV fluids to 48 KCl per liter, D5 half normal saline, a trial of clear liquids. Await abdominal x-rays today, repeat abdominal x-rays in the morning. The patient has a p artial bowel obstruction with adhesions, seems to be improved. Hopefully, she will tolerate liquids. We can advance her to full liquids later today or tomorrow, more likely tomorrow. Await tolerance of liquids and radiological imaging. Hopefully, can avoid operative intervention for this partial javier wel obstruction due to peritoneal adhesions. 2. Hypokalemia, replace with IV fluid bolus and change IV fluid maintenance to 48 KCl per liter inst ead of 20 KCl per liter. 3. Good mobility.
[2017-01-27] MEDS ORDERED: Furosemide 20 MG/2 ML VIAL SLOW IVP SCH (16:15)
[2017-01-27] MEDS: ALPRAZolam 0.5 MG TAB PO PRN (19:11)
[2017-01-27] MEDS: Morphine 4 MG/ML VIAL SLOW IVP PRN (21:35)
[2017-01-28] MEDS: Ondansetron ODT 4 MG TAB SL SCH ×3 (01:33→14:06)
[2017-01-28] MEDS: D5 1/2 NS w/40 mEq KCL 1,000 ML IV SCH (03:41)
[2017-01-28] MEDS: cefTRIAXone\\ROCEPHIN 1 GM, Syringe 0.4 ML in Sterile Water 9.6 ML SLOW IVP SCH (05:33)
[2017-01-28] MEDS: HumaLOG 300 UNITS/3 ML VIAL SC PRN (05:56)
[2017-01-28 07:07] LABS: Anion Gap 7 mmol/L (10-20); BUN (Urea Nitrogen) 4 mg/dL (9.8-20.1); Calc. Creatinine Clearance 109 mL/min (70-130); Calcium 8.2 mg/dL (7.8-10.44); Carbon Dioxide 27 mmol/L (23-31); Chloride 111 mmol/L (98-107); Estimated GFR-MDRD Greater than 90
--- NOTE | 2017-01-28 09:23 | PDOC.PN ---
- Subjective Encounter Start Date: 01/28/17 Encounter Start Time: 09:21 Subjective: no AP,nausea/vomiting.1 soft BM yesterday w tenesmus later - Objective MAR Reviewed: Yes Vital Signs & Weight: Vital Signs (12 hours) Temp Pulse Resp BP Pulse Ox 01/28/17 04:00 98.1 F 64 16 113/58 L 100 01/28/17 00:00 98.2 F 95 16 100/56 L Weight Admit Weight 253 lb 14.4 oz Weight 253 lb 14.4 oz I&O: 01/27/17 01/28/17 01/29/17 06:59 06:59 06:59 Intake Total 581 2250 Output Total 180 3000 Balance 401 -750 Result Diagrams: 01/25/17 03:50 01/28/17 06:32 Additional Labs: Accuchecks 01/28/17 01/27/17 01/27/17 05:31 21:13 17:53 POC Glucose 168 H 182 H 172 H 01/27/17 11:50 POC Glucose 139 H Microbiology 01/24/17 05:49 Urine gilliland catheter Urine Culture - Final 01/26/17 00:00 Urine gilliland catheter Urine Culture - Preliminary NO GROWTH AT 12 HOURS Phys Exam - Physical Examination Constitutional: NAD HEENT: PERRLA, moist MMs, sclera anicteric, oral pharynx no lesions Neck: no nodes, no JVD, supple, full ROM Respiratory: no wheezing, no rales, no rhonchi, clear to auscultation bilateral Cardiovascular: RRR, no significant murmur, no rub, gallop Gastrointestinal: soft, non-tender, no distention, positive bowel sounds Musculoskeletal: no edema, pulses present Neurological: non-focal, normal sensation, moves all 4 limbs Psychiatric: normal affect, A&O x 3 Skin: no rash Dx/Plan (1) Bowel obstruction Code(s): K56.609 - UNSP INTESTNL OBST, UNSP TO PARTIAL VERSUS COMPLETE OBST Status: Acute Comment: improving (2) UTI (urinary tract infection) Status: Acute (3) Hypernatremia Code(s): E87.0 - HYPEROSMOLALITY AND HYPERNATREMIA Status: Resolved (4) DM2 (diabetes mellitus, type 2) Status: Chronic (5) Glaucoma Code(s): H40.9 - UNSPECIFIED GLAUCOMA Status: Chronic (6) HTN (hypertension) Code(s): I10 - ESSENTIAL (PRIMARY) HYPERTENSION Status: Chronic (7) Morbid obesity Code(s): E66.01 - MORBID (SEVERE) OBESITY DUE TO EXCESS CALORIES Status: Chronic (8) H/O malignant neoplasm of colon Code(s): Z85.038 - PERSONAL HISTORY OF MALIGNANT NEOPLASM OF LARGE INTESTINE Status: Acute - Plan Repeat KUB today per GS. advance diet if continued improvement in SBO. -: Home later today if tolerates regular diet and KUB OK -: cont rocephin for now. Urine culture negative so far X2. -: Potassium improved. -: urine output improved after 1 dose of lasix yesterday. * .HH on DC. CM to assist. Review of Systems - Review of Systems Constitutional: negative: Fever, Chills, Sweats, Weakness, Malaise, Other Respiratory: negative: Cough, Dry, Shortness of Breath, Hemoptysis, SOB with Excertion, Pleuritic Pain, Sputum, Wheezing Cardiovascular: negative: Chest Pain, Palpitations, Orthopnea, Paroxysmal Noc. Dyspnea, Edema, Light Headedness, Other Gastrointestinal: negative: Nausea, Vomiting, Abdominal Pain, Diarrhea, Constipation, Melena, Hematochezia, Other Genitourinary: negative: Dysuria, Frequency, Incontinence, Hematuria, Retention , Other Musculoskeletal: negative: Neck Pain, Shoulder Pain, Arm Pain, Back Pain, Hand Pain, Leg Pain, Foot Pain, Other Neurological: negative: Weakness, Numbness, Incoordination, Change in Speech, Confusion, Seizures, Other - Medications/Allergies Allergies/Adverse Reactions: Allergies Allergy/AdvReac Type Severity Reaction Status Date / Time No Known Drug Allergies Allergy Verified 01/24/17 08:50 Medications: Current Medications Acetaminophen (Tylenol) 650 mg PO Q4H PRN PRN Reason: Headache/Fever or Pain Acetaminophen (Tylenol) 650 mg [place] Q4H PRN PRN Reason: Headache/Fever or Pain Alprazolam (Xanax) 0.5 mg PO DAILY PRN PRN Reason: Anxiety Last Admin: 01/27/17 19:11 Dose: 0.5 mg Dextrose/Water (Dextrose 50%) 25 gm SLOW IVP PRN PRN PRN Reason: Hypoglycemia Enoxaparin Sodium (Lovenox) 40 mg SC 0900 [facility] Last Admin: 01/27/17 08:06 Dose: 40 mg Glucagon (Glucagon) 1 mg IM PRN PRN PRN Reason: Hypoglycemia Dextrose/Water (D5w) 1,000 mls @ 0 mls/hr IV .Q0M PRN; As Directed PRN Reason: Hypoglycemia Ceftriaxone Sodium 1 gm/ (Syringe 0.4 ml/ Sterile Water) 10 mls @ 120 mls/hr SLOW IVP 0600 [facility] Last Admin: 01/28/17 05:33 Dose: 10 mls Potassium Chloride/Dextrose/Sod Cl (D5 1/2 Ns W/40 Meq Kcl) 1,000 mls @ 125 mls /hr IV .Q8H [facility] Last Admin: 01/28/17 03:41 Dose: 1,000 mls Insulin Human Lispro (Humalog) 0 units SC .MILD SLIDING SCALE PRN PRN Reason: Mild Correctional Scale Last Admin: 01/28/17 05:56 Dose: 2 unit Latanoprost (Xalatan 0.005% Oph Soln) 1 drop EA EYE TID [facility] Last Admin: 01/27/17 21:37 Dose: 1 drop Metoprolol Tartrate (Lopressor) 50 mg PO BID [facility] Last Admin: 01/27/17 21:37 Dose: 50 mg Morphine Sulfate (Morphine) 2 mg SLOW IVP Q6H PRN PRN Reason: Pain Last Admin: 01/27/17 21:35 Dose: 2 mg Ondansetron HCl (Zofran) 4 mg IVP Q6H PRN PRN Reason: Nausea/Vomiting Last Admin: 01/26/17 09:07 Dose: 4 mg Ondansetron HCl (Zofran Odt) 4 mg SL Q8HR [facility] Last Admin: 01/28/17 05:48 Dose: Not Given Prednisolone Acetate (Econopred Plus 1% Opth Susp) 1 drop L EYE BID [facility] Last Admin: 01/27/17 21:38 Dose: 1 drop Throat Lozenges (Cepastat Lozenges) 1 ashleigh PO PRN PRN PRN Reason: .BEDSIDE
[2017-01-28] MEDS: Enoxaparin Sodium 40 MG/0.4 ML SYRINGE SC SCH (09:39)
[2017-01-28] MEDS: prednisoLONE 1% Ophth Susp 5 ml Bottle L EYE SCH (09:40)
[2017-01-28] MEDS: Latanoprost 0.005% Ophth Soln 2.5 ml Bottle EA EYE SCH (09:41)
[2017-01-28] MEDS: Metoprolol Tartrate 50 MG TAB PO SCH (09:41)
[2017-01-28 10:36] VITALS: TEMP 98.2
[2017-01-28 12:06] VITALS: BP 120/70
--- NOTE | 2017-01-28 12:11 | RAD ---
TWO VIEWS OF ABDOMEN: DATE: 01/28/17. COMPARISON: 01/27/17. HISTORY: Small bowel obstruction. FINDINGS: Supine radiograph demonstrates contrast media overlying the pelvis, which could be within small or la rge bowel. There is central gaseous distention of small bowel extending into the mid right abdomen/r ight upper quadrant. The degree of small bowel distention appears similar when compared to 01/27/17 examination. The decubitus radiograph of the abdomen with the right side up demonstrates no free int raperitoneal air. IMPRESSION: Residual small bowel gaseous distention. There is some residual contrast media overlying the pelvis, likely within the distal colon. No evidence for free intraperitoneal air. POS: [facility]
--- NOTE | 2017-01-28 14:07 | PRG ---
DATE OF SERVICE: 01/28/2017 SUBJECTIVE: The patient is doing well today. She has not had any nausea or vomiting. She is hungry . She has had a bowel movement. OBJECTIVE: VITAL SIGNS: 98.2 degrees, 74, 16, 114/61. ABDOMEN: Abdominal x-rays reveal distended loop of bowel, but improved relative to yesterday. Bowel gas pattern otherwise nonspecific. She is passing flatus and had a bowel movement. Abdomen is soft , obese, nontender. LUNGS: Clear to auscultation. CARDIAC: Regular rate and rhythm without murmur or gallop. ASSESSMENT AND PLAN: Resolved bowel obstruction. Diet as tolerated. She can be discharged home any time from surgical standpoint. I will see as needed. Please call if needed.
--- NOTE | 2017-01-28 17:02 | DIS ---
DATE OF ADMISSION: 01/24/2017 DATE OF DISCHARGE: 01/28/2017 PRIMARY CARE PHYSICIAN: ELLIE Cruz CONDITION AT THE TIME OF DISCHARGE: Stable and improved. DISCHARGE DIAGNOSES: 1. Partial small-bowel obstruction, improved. 2. Urinary tract infection. 3. Hypernatremia and hypokalemia, resolved. 4. Diabetes mellitus, type 2. 5. Glaucoma. 6. Hypertension. 7. Morbid obesity. 8. History of malignant. 9. History of colon cancer. PROCEDURES DONE IN THE HOSPITAL: Include 1. CT scan of the abdomen and pelvis upon presentation, which showed abnormally dilated small bowel loops with air fluid levels consistent with small-bowel obstruction. Cholelithiasis without acute ch olecystitis also seen. 2. Multiple abdominal x-rays which showed improving bowel obstruction serially. CONSULTATIONS: Include General Surgery, Dr. Wai Babb. DISCHARGE MEDICATIONS: Resume home medications as follows, Zofran sublingual as needed, Farxiga half tablet p.o. b.i.d., alprazolam 1 tablet p.o. daily p.r.n. and metoprolol tartrate 1 tablet p.o. b.i. d. HISTORY OF PRESENTING ILLNESS: Ms. Coombs is an 81-year-old -[place] female with past medica l history of colon cancer, status post partial colectomy, diabetes as well as hypertension, who prese nted to the emergency room with complaints of abdominal pain, nausea, vomiting, and diarrhea. She wa s hemodynamically stable upon presentation. CT scan was done in the emergency room which showed dila dk small bowel loops with air fluid levels consistent with small-bowel obstruction and she was admit dk for same. Her urinalysis was positive for protein, ketones, nitrites, and bilirubin so she was a lso started on empiric IV antibiotics and cultures were sent. Please see admission history and physi vinh for further details. HOSPITAL COURSE: General Surgery was consulted regards to the small-bowel obstruction and initially NG tube was placed in. The patient had gradual improvement in her symptoms and NG tube was discontin ued. Serial KUBs were monitored and contrast passage was seen eventually down to her last part of th e colon. The patient had resolution of her symptoms and was passing soft stools on a daily basis wit hout any nausea, vomiting or abdominal pain. She was able to tolerate a regular diet prior to discha rge. Eventually, she was cleared for discharge by General Surgery for outpatient followup. She was treated with IV antibiotics while in the hospital for her UA being suggestive of UTI. Her ur ine culture remained negative x2 and the patient did not have any symptoms. She was seen and examined prior to discharge and is hemodynamically stable. Please see hospitalist jai ortega note from today's date for further detail including [id number] interaction.
--- NOTE | 2017-01-29 08:45 | EKG ---
Test Reason : STAT Blood Pressure : / mmHG Vent. Rate : 122 BPM Atrial Rate : 122 BPM P-R Int : 000 ms QRS Dur : 076 ms QT Int : 430 ms P-R-T Axes : 000 -41 076 degrees QTc Int : 612 ms Sinus tachycardia with short OK Left axis deviation Minimal voltage criteria for LVH, may be normal variant Abnormal ECG When compared with ECG of 24-JAN-2017 05:19, (Unconfirmed) Nonspecific T wave abnormality no longer evident in Anterior leads Confirmed by Jose MAN ([id number]) on 01/29/2017 8:45:17 AM Referred By: JOANNA Confirmed By:Jose MAN
== END 2017-01-28 15:47 | disposition home or self-care (01) | DRG 389 ==
LOC: ERS 04:58 → ONC 09:00 → 3SW 01-28 08:16
PROVIDERS: ADMIT Internal Medicine; ATTEND Internal Medicine
PROC: 0D9670Z Drainage of Stomach with Drainage Device, Via Natural or Artificial Opening (ICD-10-PCS; principal; 2017-01-24)
DX: K56.609 Unspecified intestinal obstruction, unspecified as to partial versus complete obstruction (principal); N39.0 Urinary tract infection, site not specified; E11.9 Type 2 diabetes mellitus without complications; E87.1 Hypo-osmolality and hyponatremia; Z68.41 Body mass index [BMI] 40.0-44.9, adult; E83.52 Hypercalcemia; I10 Essential (primary) hypertension; H40.9 Unspecified glaucoma; E66.01 Morbid (severe) obesity due to excess calories; K80.20 Calculus of gallbladder without cholecystitis without obstruction; E87.6 Hypokalemia; Z85.038 Personal history of other malignant neoplasm of large intestine; Z90.49 Acquired absence of other specified parts of digestive tract
CPT/HCPCS: 36415; 36416; 51702; 71010; 74000; 74020; 74177; 74250; 80048; 80053; 81003; 81015; 82550; 82553; 83605; 83690; 83880; 84484; 85025; 85610; 85730; 87086; 93005; 93010; 96361; 96374; 96375; 96376; A4216; G8978-GP-CJ; G8979-GP-CH; J0696; J1650; J1940; J2060; J2270; J2405; J3480; J7050; J7120; Q0162

== ENCOUNTER 2017-04-24 10:00 | Outpatient (CLI) | payer MEDICARE ==
[2017-04-24 11:37] LABS: Anion Gap 12 mmol/L (10-20); BUN (Urea Nitrogen) 7 mg/dL (9.8-20.1); Calc. Creatinine Clearance 0 mL/min (70-130); Calcium 9.6 mg/dL (7.8-10.44); Carbon Dioxide 26 mmol/L (23-31); Chloride 107 mmol/L (98-107); Estimated GFR-MDRD 83; Glucose 163 mg/dL (83-110); Potassium 3.2 mmol/L (3.5-5.1); Sodium 142 mmol/L (136-145)
--- NOTE | 2017-04-24 11:52 | ULT ---
RENAL ULTRASOUND: HISTORY: Renal cyst. COMPARISON: A CT examination of 01/24/17. FINDINGS: Real-time imaging of the right and left kidneys was performed. These showed normal-size kidneys. Th e right kidney measures 10.3 cm and the left kidney 11 cm in size. A 1.4 cm hypoechoic area within t he right kidney corresponds in location to the CT abnormality. This does not definitely fulfill all the criteria for a cyst, but is still felt most likely to represent a cyst. The left kidney shows a 3 cm cyst located along the cortex of the mid pole of the left kidney. The complex appearance of the CT on CT is difficult to appreciate by ultrasound. It is felt to be stable in size. Bladder region is unremarkable. IMPRESSION: Bilateral renal cysts. On ultrasound, I cannot appreciate the complex nature of the exophytic left r enal lesion, but it appears unchanged in size as compared to the 01/24/17 study. POS: [facility]
== END 2017-04-24 10:01 | disposition home or self-care (01) ==
LOC: ULT 10:00
PROVIDERS: ATTEND Urology
DX: N28.1 Cyst of kidney, acquired (principal)
CPT/HCPCS: 36415; 76770; 80048

== ENCOUNTER 2017-08-14 13:33 | Outpatient (CLI) | payer MEDICARE ==
[~2017-08-14 13:33] MED LIST: Iopamidol 370 76% 100 ML VIAL ONE
== END 2017-08-14 13:34 | disposition home or self-care (01) ==
LOC: BICCT 13:33
PROVIDERS: ATTEND Urology
DX: N28.1 Cyst of kidney, acquired (principal); K80.20 Calculus of gallbladder without cholecystitis without obstruction; K76.89 Other specified diseases of liver; N28.89 Other specified disorders of kidney and ureter
CPT/HCPCS: 74170